=== PATIENT | female | born 1980 | race African-American/Black ===

== ENCOUNTER 2021-01-05 09:35 | Inpatient (IN) | payer OTHER ==
[~2021-01-05 09:35] MED LIST: CITRIC ACID/SODIUM CITRATE 30 ML UNIT-DOSE CUP PO ONE; ELECTROLYTE-148 SOLN 500 ML IV SCH
[2021-01-05] MEDS ORDERED: ELECTROLYTE-148 SOLN 1,000 ML IV SCH (10:35)
[2021-01-05 11:44] VITALS: BMI 32.7
[2021-01-05 13:22] LABS: HIV INTERPRETATION NEGATIVE (NEGATIVE)
[2021-01-05] MEDS ORDERED: morphine SULFATE/PF 0.5 MG/ML (2cc Syringe - QUVA) ONE (13:22)
[2021-01-05] MEDS ORDERED: ceFAZolin SODIUM 1 GM VIAL ONE ×2 (13:44)
[2021-01-05] MEDS ORDERED: OXYTOCIN 10 UNITS/ML VIAL ONE ×3 (13:44→14:29)
[2021-01-05] MEDS ORDERED: ONDANSETRON 4 MG/2 ML VIAL IVPUSH PRN (14:34)
[2021-01-05] MEDS ORDERED: ACETAMINOPHEN INJECTION 100 ML IVPB ONE (14:54)
[2021-01-05] MEDS ORDERED: ACETAMINOPHEN 325 MG TABLET (FP) PO PRN (15:09)
[2021-01-05] MEDS ORDERED: METHYLERGONOVINE MALEATE 0.2 MG/1 ML AMP IM PRN (15:09)
[2021-01-05] MEDS ORDERED: oxyCODONE HCL 5 MG TABLET PO PRN (15:09)
[2021-01-05] MEDS ORDERED: CITRIC ACID/SODIUM CITRATE 30 ML UNIT-DOSE CUP PO ONE (15:12)
[2021-01-05] MEDS ORDERED: OXYTOCIN 20 UNITS in 0.9% NS 20 UNIT/1,000 ML INFUS.BAG IV SCH (15:15)
[2021-01-05] MEDS ORDERED: ACETAMINOPHEN 1000 MG/100 ML VIAL (NON FORMULARY) IVPB ONE (15:30)
[2021-01-05] MEDS ORDERED: OXYTOCIN 20 UNITS in 0.9% NS 20 UNIT/1,000 ML INFUS.BAG IV ONE (15:43)
[2021-01-05] MEDS ORDERED: IBUPROFEN 800 MG/8 ML IJ IVPB ONE (15:43)
[2021-01-05] MEDS: IBUPROFEN 800 MG/8 ML IJ IVPB PRN ×2 (15:54→22:27)
[2021-01-06] MEDS: IBUPROFEN 800 MG/8 ML IJ IVPB PRN (05:48)
[2021-01-06 07:09] LABS: BASO % 0.2 % (0-2.0); EOS % 0.4 % (0-4.5); HEMATOCRIT 28.3 % (32.4-45.2); HEMOGLOBIN 9.3 GM/dL (10.7-15.3); MCH 27.9 pg (25.7-33.7); MCHC 32.9 g/dl (32.0-36.0); MEAN CELL VOLUME 84.9 fl (80-96); MONO % 5.6 % (3.8-10.2); NEUT % 77.8 % (42.8-82.8); PLATELET COUNT 179 K/MM3 (134-434); RBC 3.34 M/mm3 (3.60-5.2); WHITE BLOOD COUNT 10.8 K/mm3 (4.0-10.0)
[2021-01-06] MEDS: IBUPROFEN 600 MG TABLET (FP) PO PRN (12:58)
[2021-01-06] MEDS: ACETAMINOPHEN 325 MG TABLET (FP) PO PRN (12:59)
[2021-01-06] MEDS ORDERED: BISACODYL 10 MG SUPP.RECT RC PRN (15:10)
[2021-01-06] MEDS: oxyCODONE HCL 5 MG TABLET PO PRN (16:22)
[2021-01-06] MEDS: SIMETHICONE 80 MG TAB.CHEW (FP) PO PRN (16:23)
[2021-01-07] MEDS: ACETAMINOPHEN 325 MG TABLET (FP) PO PRN ×2 (03:54→14:23)
[2021-01-07] MEDS: SIMETHICONE 80 MG TAB.CHEW (FP) PO PRN ×3 (03:55→20:20)
[2021-01-07] MEDS: SENNOSIDES/DOCUSATE COMBO (SENNA PLUS) TABLET (UD) PO PRN ×2 (03:55→20:20)
[2021-01-07] MEDS: oxyCODONE HCL 5 MG TABLET PO PRN ×4 (03:56→20:20)
[2021-01-07] MEDS: IBUPROFEN 600 MG TABLET (FP) PO PRN ×2 (08:18→20:20)
[2021-01-08] MEDS: IBUPROFEN 600 MG TABLET (FP) PO PRN (07:19)
[2021-01-08] MEDS: oxyCODONE HCL 5 MG TABLET PO PRN (07:19)
[2021-01-08 09:45] VITALS: BP 141/82; PULSE 108; TEMP 99.1
== END 2021-01-08 13:05 | disposition home or self-care (01) | DRG 785 ==
LOC: JLDR 09:35 → J3W 16:39
PROVIDERS: ADMIT Obstetrics & Gynecology; ATTEND Obstetrics & Gynecology
PROC: 10D00Z1 Extraction of Products of Conception, Low, Open Approach (ICD-10-PCS; principal; 2021-01-05)
PROC: 0UL70ZZ Occlusion of Bilateral Fallopian Tubes, Open Approach (ICD-10-PCS; 2021-01-05)
DX: O32.1XX0 Maternal care for breech presentation, not applicable or unspecified (principal); O32.2XX0 Maternal care for transverse and oblique lie, not applicable or unspecified; O36.5930 Maternal care for other known or suspected poor fetal growth, third trimester, not applicable or unspecified; O69.81X0 Labor and delivery complicated by cord around neck, without compression, not applicable or unspecified; Z30.2 Encounter for sterilization; Z3A.40 40 weeks gestation of pregnancy; Z37.0 Single live birth
CPT/HCPCS: 36415; 85025; 86780; 87389; 88302-TC; 88305-TC; 88307-TC; J0131